=== PATIENT | male | born 1945 | race Hispanic/Latino ===

== ENCOUNTER 2017-08-15 17:07 | Observation (INO) | payer OTHER, MEDICARE, SELFPAY ==
[2017-08-15 17:07] VITALS: BP 149/88; PULSE 74; RESP 20; TEMP 36.9; O2SAT 99
--- NOTE | 2017-08-15 17:57 | CT_ITS ---
STUDY: CT ABDOMEN AND PELVIS WITH CONTRAST REASON FOR EXAM: Male, 71 years old. Right abdominal pain, hernia RADIATION DOSAGE (If Supplied By Facility): CTDIvol = ( 10.79 ) mGy, DLP = ( 215.70 ) mGycm TECHNIQUE: Transaxial images were obtained from the dome of the diaphragm to the symphysis pubis without oral contrast. 100 ml of Isovue 300 contrast was administered. Sagittal and coronal images were reconstructed. Individualized dose optimization techniques were used for this CT. COMPARISON: None. FINDINGS: The visualized lung bases are unremarkable. The heart size is within normal limits. There is no pericardial effusion. Coronary arterial calcifications are present. Normal liver. Normal gallbladder and extrahepatic biliary system. There is a benign calcified granuloma of the spleen. Normal pancreas. Normal bilateral adrenal glands. Normal right kidney. Normal left kidney. Normal visualized stomach. There is mild dilatation of multiple loops of small bowel. Normal colon. The appendix is not identified. There is aneurysmal dilatation of a 5.9 cm in length segment of lower abdominal aorta extending to the iliac bifurcation. Maximal aneurysmal diameter is 5.7 x 5.2 cm. Mural thrombus is noted anteriorly. There is no evidence of aneurysmal leakage. Normal inferior vena cava. Normal retroperitoneum. Normal urinary bladder. The prostate is mildly enlarged. There is a small amount free fluid in the deep right pelvis. There is an indirect right inguinal hernia containing a knuckle of small bowel. Normal osseous structures. CT/Abdomen/Pelvis W IV Cont ONLY IMPRESSION: 1. Indirect right inguinal hernia containing a knuckle of nondistended small bowel suggestive of incarceration. 2. There is mild dilatation of multiple loops of small bowel in the abdomen and pelvis suggestive of obstruction. 3. There is a small amount of free fluid in the deep right pelvis. 4. There is aneurysmal dilatation of a 5.9 cm in length segment of lower abdominal aorta extending to the iliac bifurcation. Maximal aneurysmal diameter is 5.7 x 5.2 cm. Mural thrombus is noted anteriorly. There is no evidence of aneurysmal leakage. Electronically Signed: David Mathews MD at 19:17 EDT , Service support ,
--- NOTE | 2017-08-15 18:00 | ED.DCSUM_ITS ---
- ER Visit Summary Date of Service: 08/15/17 Chief Complaint: Right groin pain History of Present Illness: The patient is a 71 M sent by PCP for concerns of incarcerated inguinal hernia. Patient started having pain in the groin 9 PM yesterday. Denied any heavy lifting the day before or prior symptoms occurring. States pain kept him throughout the night. No nausea or vomiting. Normal bowel movement this morning. Pain worse with palpation or movement. No fever, chills, sweats. Pain currently 5 out of 10. Patient is on Eliquis for which she states had a PE last year status post right total knee arthroplasty. This was diagnosed and managed at [facility]. Physical Examination: General: Alert and oriented ?3, no acute distress HEENT: Normocephalic, atraumatic. Moist mucosa membranes Neck: supple, nontender. Cardiovascular: Regular rate and rhythm, no murmurs Respiratory: Normal breath sounds, symmetric, no distress Abdomen: Soft, nontender, nondistended : No testicular tenderness. There is a right inguinal hernia palpated, there is no swelling, tender to palpation. Extremities: Nontender, no edema, pulses intact ?4 Neuro: no focal neurological deficits. Test Results: WBC 5.9. Hemoglobin 13.1. Creatinine 0.94. Lactate 0.8. CT scan abdomen pelvis notes incarcerated right inguinal hernia with concerns for bowel obstruction. 5.9 cm abdominal aortic aneurysm. Platelets 68. EKG: Sinus rate of 70, no ST or T-wave changes. Chest x-ray: No acute process Emergency Department Course and Treatment: Patient noted hernia on examination. However symptoms are near 20 hours on arrival. He is nontoxic, nonsurgical abdomen. Workup initiated. Labs were normal white count and lactic acid. CT IV contrast notes incarcerated inguinal hernia with concerns for small bowel obstruction. Labs no thrombocytopenia. He is also on Eliquis for history of PE. Coags are stable. With findings on CT discussed with requested surgeon by PCP, Dr. Yates who evaluated patient in the ED. Patient was admitted for planned surgery in the morning. Patient did not have a 5.9 cm abdominal aortic aneurysm. He does not have any mid abdominal pain. There was no bleeding per discussion with radiology. Patient has known thrombocytopenia, no current bleeding. He states he has a hematology referral as an outpatient as pending. Treatment Plan: [] Disposition: Admission Impression: 1. Incarcerated right inguinal hernia 2. Small bowel obstruction 3. Thrombocytopenia 4. Abdominal aortic aneurysm 5.9 cm This note was generated with [employer] dictation software. It may contain incorrect words, spelling, and punctuation that were not noted in review of the chart prior to signing ED Disposition - Plan for ED Patient: Disposition: Acute Care [facility] Chief Complaint: Abd Pain Diagnosis: Incarcerated right inguinal hernia, Thrombocytopenia, Small bowel obstruction, Abdominal aortic aneurysm (AAA) greater than 5.5 cm in diameter in male Referrals: Kelechi Burroughs, FILTER ASSEMBLER-C [Primary Care Provider] -
[2017-08-15] MEDS: Morphine 4 MG/ML Syringe IV (18:11)
[2017-08-15] MEDS: 0.9% Normal Saline 1,000 ML 125 ML IV ×2 (18:11→20:52)
[2017-08-15 18:28] LABS: Absolute Neutrophil Count 3.4 X10^3/uL (2.0-7.7); Basophil# 0.02 X10^3/uL; Basophil% 0.3 % (0-1); Eosinophil# 0.06 X10^3/uL; Hematocrit 40.3 % (40-54); Hemoglobin 13.1 g/dl (13.0-16.5); Lymphocyte % 15.4 % (19-41); Mean Corp Hgb Conc 32.5 g/gl (32-36); Mean Corpuscular Hgb 31.1 pg (27.0-32.0); Mean Corpuscular Volume 95.7 fL (80-94); Mean Platelet Vol. 11.8 fl (6.2-12.0); Monocyte# 1.42 X10^3/uL; Monocyte% 24.3 % (0-10); Neutrophil # 3.44 X10^3/uL (2.7-7.7); Neutrophil % 58.8 % (47-70); Platelet Count 68 K/mm3 (150-450); RBC Distribution Width CV 14.8 % (11.6-14.6); RBC Distribution Width SD 52.4 fl (35.1-43.9); Red Blood Count 4.21 M/mm3 (4.6-6.2); White Blood Count 5.9 K/mm3 (4.4-11.0)
[2017-08-15 18:29] LABS: POSITIVE COUNT NO; POSITIVE DIFFERENTIAL NO; POSITIVE MORPHOLOGY NO
[2017-08-15 18:36] LABS: International Normalized Ratio 0.9; Partial Thromboplast Time 25.5 Seconds (24.1-36.2); Prothrombin Time (Protime)PT. 12.6 SECONDS (11.7-14.9)
[2017-08-15 18:40] LABS: Anion Gap 3 (5-15); BUN 12 mg/dL (7-18); BUN/Creat Ratio 12.7 RATIO (10-20); Calcium,Total 8.8 mg/dL (8.5-10.1); Chloride 106 mmol/L (98-107); Creatinine, Serum 0.94 mg/dL (0.70-1.30); EST Glomerular Filtration Rate 84 mL/min (>60); Est Glom Filt Rate - Afr Amer 101 mL/min (>60); Estimated Creatinine Clearance 49.85 ml/min; Glucose 84 mg/dL (74-106); Potassium 4.2 mmol/L (3.5-5.1); Sodium Level 139 mmol/L (136-145)
[2017-08-15 19:29] VITALS: BP 141/80; PULSE 66; RESP 16; TEMP 36.8; O2SAT 97
[2017-08-15 19:59] LABS: Lactic Acid 0.8 mmol/L (0.4-2.0)
--- NOTE | 2017-08-15 20:24 | EKG12_ITS ---
Test Reason : DYSRHYTHMIA Blood Pressure : / mmHG Vent. Rate : 064 BPM Atrial Rate : 064 BPM P-R Int : 168 ms QRS Dur : 080 ms QT Int : 406 ms P-R-T Axes : 069 075 068 degrees QTc Int : 418 ms Normal sinus rhythm Normal ECG Confirmed by DEBORAH JURADO ([id number]), senior technical editor RAMON BROWNE ([id number] on 08/19/2017 10:20:34 AM Referred By: SAUL Confirmed By:DEBORAH JURADO
--- NOTE | 2017-08-15 20:25 | ED.RN ---
CALLED FOR EKG PER REQUEST OF DR MORRIS, PULLED OLD EKG'S FOR
--- NOTE | 2017-08-15 20:48 | RAD_ITS ---
STUDY: X-RAY CHEST REASON FOR EXAM: Male, 71 years old. Preop TECHNIQUE: Single AP portable view of the chest. COMPARISON: None. FINDINGS: The lungs are clear and expanded. There is no demonstrated pleural abnormality. Normal size heart. Normal mediastinum and murali. Normal visualized pulmonary arteries. Normal visualized aortic arch and descending thoracic aorta. Normal visualized thoracic spine. Normal visualized ribs, clavicles, and shoulders. There is no demonstrated abnormality of the visualized soft tissue structures of the upper abdomen. RAD/Chest 1 View (Portable) IMPRESSION: Chest findings within normal limits. No acute cardiopulmonary disease process is seen. Electronically Signed: David Mathews MD at 21:18 EDT , Service support ,
[2017-08-15 20:55] VITALS: BP 158/89; PULSE 64; RESP 16; TEMP 36.8; O2SAT 97
[2017-08-15 20:58] VITALS: BP 158/89; PULSE 67; RESP 16; O2SAT 97
--- NOTE | 2017-08-15 20:58 | PCM.HP.STD ---
Problem List (1) Incarcerated right inguinal hernia Status: Acute (2) Pulmonary embolism Status: Chronic Qualifiers: Pulmonary embolism type: other Chronicity: chronic Acute cor pulmonale presence: without acute cor pulmonale Qualified Code(s): I27.82 - Chronic pulmonary embolism (3) Thrombocytopenia Status: Chronic (4) Hypertension Status: Chronic Qualifiers: Hypertension type: unspecified Qualified Code(s): I10 - Essential (primary) hypertension (5) AAA (abdominal aortic aneurysm) without rupture Status: Acute History of Present Illness Date of Admission: 08/15/17 The patient is a 71 year old M who developed right groin pain 9 PM last night. He has known that he has had a right inguinal hernia. He is always been able to reduce it. He was not able to reduce it so he presented to his primary care physician GUERA Villalobos. The patient was referred to the [facility] emergency room where he states he presented around 4:00. I was first notified at 9 PM . The patient states that the right groin pain has improved since earlier today. He denies fever or chills or sweats. The patient states that he had a right total knee replacement June 2016. He states that he had a pulmonary embolus December 2016. He states that he did not have any deep venous thrombosis in his legs. It is of note that his history and physical June 2016 suggested that he had actually previously been on Eliquis therapy in the past as well. The patient apparently could not recall the reason. During the patient's immediate postoperative recovery from his right total knee apparently he was not managed on Eliquis A CT scan of the abdomen and pelvis was obtained through the [place] [facility]. There is felt to be mild dilatation of multiple loops of small bowel. There is aneurysmal dilatation of the abdominal aorta to 5.9 cm extending to the iliac bifurcation. No evidence for leak. There is felt to be an indirect right inguinal hernia containing a knuckle of small bowel. The patient tells me that he currently has just some minimal residual discomfort in the right groin. He notes that upon my arrival I was easily able to reduce area. I had him check the area as well and he is able to easily reduce the hernia. He does note some mild persistent tenderness. He denies any abdominal pain. He additionally cautions me that in the right lower quadrant he had a morphine pain pump with tubing that goes around to his back. He states it was because of a chronic right shoulder injury. His white blood cell count is only 5.9. Hemoglobin 13.1. Hematocrit 40.3. Platelet count 68,000. 58% neutrophils. Coags are normal. BUN is 12 and creatinine 0.94. Lactic acid level 0.8 Past Medical History Past Medical History (Chronic Problems): Chronic Problems Pulmonary embolism (Chronic) Thrombocytopenia (Chronic) Hypertension (Chronic) Allergies aspirin Allergy (Verified 08/15/17 17:10) Rash Home Medications: Ambulatory Orders Medication Instructions Recorded Apixaban [Eliquis] 2.5 mg PO BID #16 tablet 07/02/16 Ergocalciferol [Vitamin D] 50,000 unit PO Q7D #7 capsule 07/02/16 Famotidine [Pepcid] 20 mg PO DAILY #30 tablet 07/02/16 Ferrous Sulfate 325 mg PO DAILY@0800 #30 tablet 07/02/16 Gabapentin [Neurontin] 300 mg PO TIDCM #90 capsule 07/02/16 Pramipexole Di-HCl [Mirapex] 1 mg PO QHS #30 tablet 07/02/16 traZODone [Desyrel] 50 mg PO QHS #30 tablet 07/02/16 Surgical History: - - Right total replacement. History of right lower quadrant morphine pain pump insertion Smoking Status: Former smoker Tobacco Use: Cigarettes Alcohol: None - *Family History Maternal History Items: No pertinent history Review of Systems Constitutional: Reports: - - Upon questioning the patient he states that over the past several months he has possibly lost 10 pounds in weight. He is not sure the reason. He states that only 3 weeks ago did he stop smoking cigarettes. He has been a lifelong cigarette smoker Eyes: Denies: Blurred vision HEENT: Denies: Difficulty Hearing Cardiovascular: Denies: Chest Pain Respiratory: Denies: Cough Gastrointestinal: Denies: Abdominal Pain, Constipation, Diarrhea, Hematemesis, Hematochezia, Nausea, Melena, Vomiting Genitourinary: Denies: Dysuria Musculoskeletal: Denies: Leg Pain Skin: Denies: Dryness Psychiatric: Denies: Anxiety Endocrine: Reports: Change in Body Habitus Hematologic/ Lymphatic: Reports: - - Reports history of thrombocytopenia VTE Information - Inpt Only VTE Present on Admission: No VTE Mechan Device Prophylaxis: SCD's VTE Pharm Prophylaxis ordered?: No Patient Problems: Active and Suspected Problems Incarcerated right inguinal hernia (Acute) AAA (abdominal aortic aneurysm) without rupture (Acute) - Physical Exam General: Alert, Oriented x3, Cooperative, No apparent distress, - - Patient appears cachectic very diminutive in size HEENT: Atraumatic Oral: Moist Mucosa Neck: Supple, No JVD, Negative Carotid Bruits Lungs: Clear to auscultation, - - Increased anterior posterior diameter. Slightly diminished in the bases. Cardiovascular: Regular rate, Regular Rhythm Abdomen: Soft, Non Tender, Hypoactive Bowel Sounds, Distended, - - Testicles are descended. Left groin solid intact. Right inguinal hernia detectable but easily reducible. Soft. Mildly tender to very deep palpation. No fixed mass. Extremities: No edema Skin: No rashes Musculoskeletal: No Tenderness to Palpation of Joints or Extremities Lymphatic: No Cervical, Supraclavicular, or Inguinal Adenopathy Neurological: Cranial nerves II-XII grossly intact Psych/Mental Status: Normal Affect Vital Signs Temp Pulse Resp BP Pulse Ox 98.2 F 64 16 158/89 H 97 08/15/17 20:55 08/15/17 20:55 08/15/17 20:55 08/15/17 20:55 08/15/17 20:55 Oxygen Delivery Method Room Air Weight: 106 lb 4.205 oz Body Mass Index (BMI) 20.0 Laboratory Tests Past 24 Hrs 08/15/17 08/15/17 08/15/17 18:05 18:05 18:05 WBC 5.9 RBC 4.21 L Hgb 13.1 Hct 40.3 MCV 95.7 H MCH 31.1 MCHC 32.5 RDW 14.8 H RDW Differential 52.4 H Plt Count 68 L MPV 11.8 Immature Gran % (Auto) 0.200 Neut % (Auto) 58.8 Lymph % (Auto) 15.4 L [place] % (Auto) 24.3 H Eos % (Auto) 1.0 Baso % (Auto) 0.3 Absolute Neuts (auto) 3.4 Absolute Lymphs (auto) 0.90 Total Counted Not Reportable PT 12.6 INR 0.9 APTT 25.5 Sodium 139 Potassium 4.2 Chloride 106 Carbon Dioxide 30.0 Anion Gap 3 L BUN 12 Creatinine 0.94 Estim Creat Clear Calc 49.85 Est GFR (MDRD) Af Amer 101 Est GFR (MDRD) Non-Af 84 BUN/Creatinine Ratio 12.7 Glucose 84 Lactic Acid Calcium 8.8 Blood Type Antibody Screen 08/15/17 08/15/17 19:25 19:50 WBC RBC Hgb Hct MCV MCH MCHC RDW RDW Differential Plt Count MPV Immature Gran % (Auto) Neut % (Auto) Lymph % (Auto) [place] % (Auto) Eos % (Auto) Baso % (Auto) Absolute Neuts (auto) Absolute Lymphs (auto) Total Counted PT INR APTT Sodium Potassium Chloride Carbon Dioxide Anion Gap BUN Creatinine Estim Creat Clear Calc Est GFR (MDRD) Af Amer Est GFR (MDRD) Non-Af BUN/Creatinine Ratio Glucose Lactic Acid 0.8 Calcium Blood Type O POSITIVE Antibody Screen NEGATIVE Assessment/Plan All Active Problems Incarcerated right inguinal hernia (Acute) AAA (abdominal aortic aneurysm) without rupture (Acute) Status post revision of total replacement of right knee (Acute) Debility (Acute) The patient last took his Eliquis last night. The hernia is reducible. He does not appear to have an acute abdomen. The CT findings suggest previous incarceration which now is been reduced upon my arrival. He does not have a leukocytosis nor an elevated lactic acid level. He does have thrombocytopenia which by his report did not lead to previous surgical difficulties. He has a infrarenal abdominal aortic aneurysm. This does not appear to be tender nor does it appear to be part of this acute presentation. He has a pain pump located in the right lower quadrant. He is extraordinarily slender. Because of the acuteness of his presentation and severity of his pain and slight dilatation of bowel on CT I recommend that the patient be hospitalized. We will allow him out of bed for bathroom privileges otherwise we will attempt to keep the hernia reduced. I will use sequential venous compression devices and hold his anticoagulation to allow for surgery tomorrow. I am recommending a right inguinal herniorrhaphy done under monitored anesthesia care and local anesthetic with mesh. He is aware of the technique, benefits, risks, alternatives. No guarantees of success have been offered. We will need to avoid the pain pump that he has located in the right lower quadrant. He will need to have future further assessment of his infrarenal abdominal aortic aneurysm as well. He is otherwise unexpected weight loss is of undetermined etiology. His history of pulmonary embolus he states with undetermined etiology. It may also be of value for primary care to pursue consideration at least of a occult workup for neoplasm. The patient has had an opportunity to ask and have questions answered. We will admit and proceed with surgical intervention tomorrow. Cameron Yates M.D., F.A.C.S.
[2017-08-15 22:11] VITALS: BMI 19.8
[2017-08-15 22:35] VITALS: BP 149/82; PULSE 64; RESP 16; TEMP 36.7; O2SAT 99
[2017-08-15] MEDS: Lactated Ringers 1,000 ML 70 ML IV (22:55)
[2017-08-15] MEDS: Acetaminophen 325 MG Tablet 650 MG PO (22:55)
[2017-08-15] MEDS: traZODone 50 MG Tablet PO (22:56)
[2017-08-15] MEDS: Pramipexole Di-HCl 1 MG Tablet PO (22:56)
[2017-08-16] VITALS (11 sets, daily range): BP systolic 109–149; BP diastolic 69–84; PULSE 60–78; RESP 16–18; TEMP 36.2–36.6; O2SAT 94–99; BMI 19.8
[2017-08-16 06:49] LABS: Absolute Lymphocyte Count 0.95 X10^3/ul (0.83-4.51); Absolute Neutrophil Count 2.8 X10^3/uL (2.0-7.7); Basophil# 0.01 X10^3/uL; Basophil% 0.2 % (0-1); Eosinophil# 0.07 X10^3/uL; Eosinophils% 1.3 % (0-5); Hematocrit 37.2 % (40-54); Hemoglobin 11.8 g/dl (13.0-16.5); Lymphocyte # 0.95 X10^3/ul (4.0); Lymphocyte % 18.1 % (19-41); Mean Corp Hgb Conc 31.7 g/gl (32-36); Mean Corpuscular Hgb 30.5 pg (27.0-32.0); Mean Corpuscular Volume 96.1 fL (80-94); Mean Platelet Vol. 12.6 fl (6.2-12.0); Monocyte# 1.46 X10^3/uL; Monocyte% 27.9 % (0-10); Neutrophil # 2.75 X10^3/uL (2.7-7.7); Neutrophil % 52.5 % (47-70); Platelet Count 68 K/mm3 (150-450); RBC Distribution Width CV 14.8 % (11.6-14.6); Red Blood Count 3.87 M/mm3 (4.6-6.2); White Blood Count 5.2 K/mm3 (4.4-11.0)
[2017-08-16 06:55] LABS: POSITIVE COUNT NO; POSITIVE DIFFERENTIAL NO; POSITIVE MORPHOLOGY NO
--- NOTE | 2017-08-16 08:28 | NURSING ---
report called to ac- talked with rolly hernandez
--- NOTE | 2017-08-16 09:32 | NURSING ---
[pt off unit at this time for surgery
[2017-08-16] MEDS: Cefazolin 2 GM in 0.9% Normal Saline 100 ML IV (10:10)
--- NOTE | 2017-08-16 10:16 | PCM.DC.GS ---
Discharge Diet: Light diet - advance as tolerated - if you have questions about your diet instructions, please talk to you doctor. Discharge Activity: May Not Drive - for 1 week or while taking narcotic pain medicine. May shower in (days): 1 Lifting Restrictions: 10 pounds Call your doctor if your incision/area has: Continuous Slow Oozing, Sudden Increased Bleeding, Increased Pain/ Swelling, Increased Redness, Foul Smelling Discharge Call your doctor if you observe: Fever of 101 or Higher Suture Line Care: Avoid Pulling/Pushing, Avoid Pinching/Bending Additional Dressing/Incision Instructions:: Change or remove dressing in 4 days. Leave steri-strips in place for 1 week. Additional Instructions: You may resume your Eliquis on the morning of August 17, 2017 You may resume your other medications today August 16, 2017 Allergies/Adverse Reactions: Allergies aspirin Allergy (Verified 08/15/17 17:10) Rash Medications to take at Discharge Apixaban [Eliquis] 2.5 mg PO BID #16 tablet 07/02/16 Ergocalciferol [Vitamin D] 50,000 unit PO Q7D #7 capsule 07/02/16 Ferrous Sulfate 325 mg PO DAILY@0800 #30 tablet 07/02/16 Pramipexole Di-HCl [Mirapex] 1 mg PO QHS #30 tablet 07/02/16 traZODone [Desyrel] 50 mg PO QHS #30 tablet 07/02/16 Gabapentin [Neurontin] 300 mg PO DAILY 08/16/17 Gabapentin [Neurontin] 600 mg PO QHS 08/16/17 Hydrocodone Bitart/Apap 5-325 [[place] 5MG-325MG] 1 tablet PO Q6H PRN PRN 3 Days #8 tablet 08/16/17 Psyllium Husk (with Sugar) [Metamucil Packet] 3.4 gm PO DAILY #7 packet 08/16/17 The following prescriptions were given: Hydrocodone Bitart/Apap 5-325 [[place] 5MG-325MG] 1 tablet PO Q6H PRN PRN 3 Days #8 tablet PRN Reason: Pain Psyllium Husk (with Sugar) [Metamucil Packet] 3.4 gm PO DAILY #7 packet Primary Care Physician: Kelechi Burroughs, PACO-C [Primary Care Provider] - Please Follow Up With: Cameron Yates MD - [phone] When: Call to make an appointment to be seen in about 10 days.
[2017-08-16] MEDS: Bupivacaine Mpf 0.5% 30 ML VIAL (10:25)
--- NOTE | 2017-08-16 11:10 | OP.PCM_ITS ---
Problem List (1) Incarcerated right inguinal hernia Status: Acute (2) Pulmonary embolism Status: Chronic Qualifiers: Pulmonary embolism type: other Chronicity: chronic Acute cor pulmonale presence: without acute cor pulmonale Qualified Code(s): I27.82 - Chronic pulmonary embolism (3) Thrombocytopenia Status: Chronic (4) Hypertension Status: Chronic Qualifiers: Hypertension type: unspecified Qualified Code(s): I10 - Essential (primary ) hypertension (5) AAA (abdominal aortic aneurysm) without rupture Status: Acute Report of Operation Date of Procedure: 08/16/17 Pre-Operative Diagnosis: Incarcerated right inguinal hernia Post-Operative Diagnosis: Incarcerated indirect right inguinal hernia Surgery/Procedure Performed:: Sandor right inguinal herniorrhaphy Description of Surgical Findings:: Timeout and informed consent was obtained. 71-year-old gentleman was taken to the operating room. He presented with acute pain tenderness and mass in the right groin. CT scan had suggested a knuckle of bowel incarceration. He underwent monitored anesthesia care. Ancef 2 g were given intravenous preoperatively. The right groin was sterilely prepped and draped. 1% lidocaine mixed 50-50 with 0.5% Marcaine was used as local anesthetic 15 cc was used. A transverse incision was made in the right groin. Sharp dissection carried down through the subcutaneous tissue. The patient was incredibly thin. The skin Was identified and the external oblique in size. The hernia Bulging out and had to be circumferentially dissected free. The internal contents appear to be unremarkable I did not attempt to open the sac. The degree of tension on the sciatic. I felt that he would have great difficulty in reducing the contents. Having completely free the hernia then approximated the transversalis fascia with a running 3-0 Ethibond. Then I used a piece of keyhole Marlex mesh. I completely dissected free overlying the pubic tubercle and beneath the external oblique laterally. The mesh deformed. Placed mesh that was tonight defect the defect area. It absolutely formed fit underneath the external oblique and around the internal ring. It was secured to itself lateral to the internal ring with a 3-0 Ethibond and it was nicely placed into position. It was secured to the pubic tubercle with 3-0 Ethibond. The external oblique was then approximated with several interrupted 3-0 Vicryl sutures. Good positioning and reduction of the hernia was achieved. Subdermal tissues approximated with several interrupted 3-0 Vicryl. The skin edges approximated with running subcu 4-0 Monocryl. Steri-Strip Telfa and OpSite dressings applied. Sponge and instrument and needle counts were reported to the surgeon to be correct. Specimens none. Drains none. Blood loss minimal. He was taken to the recovery area in satisfactory condition without apparent complication. Cameron Yates M.D., F.A.C.S. Type of Anesthesia:: Local MAC
--- NOTE | 2017-08-16 12:04 | NURSING ---
Received call from PACU- notified that they received orders from Dr. Yates to d/c patient. Notified that patient would be in room 19 and ask if patient should be returned to unit or if they should keep patient and transport belongings. In order to prevent transporting patient unnecessarily- staff on [facility] will deliver belongings to 19 in PACU.
== END 2017-08-16 15:35 | disposition home or self-care (01) ==
LOC: ED 21:34 → MS3 21:39
PROVIDERS: Admitting Provider Surgery; Emergency Provider Emergency Medicine; Family Provider Nurse Practitioner Family; PCP Nurse Practitioner Family; Visit Provider Surgery
PROC: (CPT 49507; principal; 2017-08-16 07:15)
DX: K40.30 Unilateral inguinal hernia, with obstruction, without gangrene, not specified as recurrent (principal); D69.6 Thrombocytopenia, unspecified; I10 Essential (primary) hypertension; Z86.711 Personal history of pulmonary embolism; Z79.899 Other long term (current) drug therapy; Z87.891 Personal history of nicotine dependence; G25.81 Restless legs syndrome; I71.4 Abdominal aortic aneurysm, without rupture
CPT/HCPCS: 00830; 49507; 36415; 71045; 74177; 80048; 83605; 85025; 85610; 85730; 86850; 86900; 93005; 96361; 96374; 99218; 99282; J7030; J7120; Q9967; A4216; C1781; G0378

== ENCOUNTER → 2018-12-25 15:22 | Outpatient (CLI) | payer OTHER, MEDICARE, SELFPAY ==
[2018-12-25 16:02] LABS: Absolute Lymphocyte Count 1.19 X10^3/uL (0.83-4.51); Absolute Neutrophil Count 2.1 X10^3/uL (2.0-7.7); Basophil# 0.03 X10^3/uL; Basophil% 0.7 % (0-1); Eosinophil# 0.09 X10^3/uL; Hematocrit 41.5 % (40-54); Hemoglobin 13.1 g/dL (13.0-16.5); Lymphocyte # 1.19 X10^3/ul (4.0); Lymphocyte % 26.6 % (19-41); Mean Corp Hgb Conc 31.6 g/dL (32-36); Mean Corpuscular Hgb 30.5 pg (27.0-32.0); Mean Corpuscular Volume 96.5 fL (80-94); Monocyte# 1.06 X10^3/uL; Monocyte% 23.7 % (0-10); NRBC Flagged by Analyzer 0 % (0-5); Neutrophil # 2.09 X10^3/uL (2.7-7.7); Neutrophil % 46.6 % (47-70); POSITIVE MORPHOLOGY YES; Platelet Count 75 K/mm3 (150-450); RBC Distribution Width CV 14.7 % (11.6-14.6); RBC Distribution Width SD 52.5 fl (35.1-43.9); White Blood Count 4.5 K/mm3 (4.4-11.0)
[2018-12-25 16:11] LABS: Differential Indicated SCAN CRITERIA MET; Erythrocyte Sedimentation Rate 26 mm/hr (0-20)
[2018-12-25 16:35] LABS: CRP < 2.90 mg/L (0.0-3.0)
[2018-12-25 16:50] LABS: Anisocytosis RARE; Macrocytosis RARE; Platelet Estimate MOD DEC (ADEQ); Platelet Morphology LARGE; Red Cell Morphology N CHROM NORMAL (NORM C&C)
[2018-12-26 11:54] LABS: Pathologist Review Reviewed
== END ==
PROVIDERS: Family Provider Nurse Practitioner Family; PCP Nurse Practitioner Family; Referring Provider Specialist; Visit Provider Specialist
DX: Z96.651 Presence of right artificial knee joint (principal)
CPT/HCPCS: 36415; 85025; 85652; 86140

== ENCOUNTER → 2019-12-03 12:34 | Outpatient (CLI) | payer MEDICARE, SELFPAY ==
[2019-12-03 14:16] LABS: Absolute Lymphocyte Count 1.12 X10^3/uL (0.83-4.51); Absolute Neutrophil Count 3.8 X10^3/uL (2.0-7.7); Basophil# 0.01 X10^3/uL; Basophil% 0.2 % (0-1); Eosinophil# 0.09 X10^3/uL; Eosinophils% 1.4 % (0-5); Hematocrit 39.7 % (40-54); Hemoglobin 12.3 g/dL (13.0-16.5); Lymphocyte # 1.12 X10^3/ul (4.0); Lymphocyte % 16.9 % (19-41); Mean Corpuscular Hgb 30.1 pg (27.0-32.0); Mean Corpuscular Volume 97.3 fL (80-94); Monocyte# 1.61 X10^3/uL; Monocyte% 24.2 % (0-10); NRBC Flagged by Analyzer 0 % (0-5); Neutrophil # 3.78 X10^3/uL (2.7-7.7); Neutrophil % 56.8 % (47-70); POSITIVE COUNT YES; POSITIVE DIFFERENTIAL YES; Platelet Count 86 K/mm3 (150-450); RBC Distribution Width CV 14.3 % (11.6-14.6); RBC Distribution Width SD 51.3 fl (35.1-43.9); Red Blood Count 4.08 M/mm3 (4.6-6.2); White Blood Count 6.6 K/mm3 (4.4-11.0)
[2019-12-03 14:28] LABS: Differential Indicated SCAN CRITERIA MET
[2019-12-03 14:32] LABS: Albumin, Serum 3.8 g/dL (3.2-5.0); Anion Gap 4 (5-15); BUN 12 mg/dL (7-18); BUN/Creat Ratio 13.4 RATIO (10-20); Chloride 104 mmol/L (98-107); EST Glomerular Filtration Rate 89 mL/min (>60); Est Glom Filt Rate - Afr Amer 107 mL/min (>60); Glucose 89 mg/dL (74-106); Potassium 3.9 mmol/L (3.5-5.1); Sodium Level 137 mmol/L (136-145)
[2019-12-03 14:46] LABS: Differential Comment SCANNED; Platelet Estimate ADEQUATE (ADEQ)
[2019-12-03 14:47] LABS: Platelet Morphology LARGE
== END ==
PROVIDERS: PCP Nurse Practitioner Family; Referring Provider Specialist; Visit Provider Specialist
DX: Z01.812 Encounter for preprocedural laboratory examination (principal); Z96.651 Presence of right artificial knee joint
CPT/HCPCS: 36415; 80048; 82040; 85025

== ENCOUNTER → 2020-03-31 10:40 | Outpatient (CLI) | payer MEDICARE, SELFPAY ==
[2020-03-31 11:15] LABS: Absolute Lymphocyte Count 1.04 X10^3/uL (0.83-4.51); Absolute Neutrophil Count 2.7 X10^3/uL (2.0-7.7); Basophil# 0.01 X10^3/uL; Basophil% 0.2 % (0-1); Eosinophil# 0.11 X10^3/uL; Eosinophils% 2.1 % (0-5); Hematocrit 37.6 % (40-54); Lymphocyte # 1.04 X10^3/ul (4.0); Lymphocyte % 19.6 % (19-41); Mean Corp Hgb Conc 31.9 g/dL (32-36); Mean Corpuscular Hgb 30.9 pg (27.0-32.0); Mean Corpuscular Volume 96.9 fL (80-94); Mean Platelet Vol. 13.6 fl (6.2-12.0); Monocyte# 1.41 X10^3/uL; Monocyte% 26.6 % (0-10); NRBC Flagged by Analyzer 0 % (0-5); Neutrophil # 2.72 X10^3/uL (2.7-7.7); Neutrophil % 51.3 % (47-70); POSITIVE COUNT YES; POSITIVE MORPHOLOGY YES; Platelet Count 81 K/mm3 (150-450); RBC Distribution Width CV 14.6 % (11.6-14.6); Red Blood Count 3.88 M/mm3 (4.6-6.2); White Blood Count 5.3 K/mm3 (4.4-11.0)
[2020-03-31 11:16] LABS: Differential Indicated SCAN CRITERIA MET
[2020-03-31 11:41] LABS: Hypochromasia 1+; Platelet Estimate MOD DEC (ADEQ); Platelet Morphology LARGE
[2020-03-31 11:45] LABS: Anion Gap 1 (5-15); BUN 12 mg/dL (7-18); BUN/Creat Ratio 12.9 RATIO (10-20); Calcium,Total 8.9 mg/dL (8.5-10.1); Chloride 111 mmol/L (98-107); Creatinine, Serum 0.93 mg/dL (0.70-1.30); EST Glomerular Filtration Rate 85 mL/min (>60); Est Glom Filt Rate - Afr Amer 102 mL/min (>60); Glucose 98 mg/dL (74-106); Sodium Level 142 mmol/L (136-145)
== END ==
PROVIDERS: PCP Nurse Practitioner Family; Referring Provider Specialist; Visit Provider Specialist
DX: Z01.818 Encounter for other preprocedural examination (principal); Z01.812 Encounter for preprocedural laboratory examination
CPT/HCPCS: 36415; 80048; 82040; 85025

== ENCOUNTER → 2021-10-19 | Outpatient (CLI) | payer MEDICARE, SELFPAY ==
[2021-10-19 13:07] LABS: Erythrocyte Sedimentation Rate 41 mm/hr (0-20)
[2021-10-19 13:11] LABS: Absolute Lymphocyte Count 1.16 X10^3/uL (0.83-4.51); Absolute Neutrophil Count 4.3 X10^3/uL (2.0-7.7); Basophil# 0.03 X10^3/uL; Basophil% 0.4 % (0-1); Eosinophil# 0.15 X10^3/uL; Hemoglobin 11.3 g/dL (13.0-16.5); Lymphocyte # 1.16 X10^3/ul (0.83-4.51); Lymphocyte % 15.4 % (19-41); Mean Corp Hgb Conc 31.4 g/dL (32-36); Mean Corpuscular Hgb 29.9 pg (27.0-32.0); Mean Corpuscular Volume 95.2 fL (80-94); Mean Platelet Vol. 13.1 fl (6.2-12.0); Monocyte# 1.81 X10^3/uL; Monocyte% 24.1 % (0-10); NRBC Flagged by Analyzer 0 % (0-5); Neutrophil # 4.34 X10^3/uL (2.7-7.7); Neutrophil % 57.8 % (47-70); POSITIVE DIFFERENTIAL YES; POSITIVE MORPHOLOGY YES; Platelet Count 104 K/mm3 (150-450); RBC Distribution Width SD 49.1 fl (35.1-43.9); Red Blood Count 3.78 M/mm3 (4.6-6.2); White Blood Count 7.5 K/mm3 (4.4-11.0)
[2021-10-19 13:48] LABS: Differential Indicated SCAN CRITERIA MET
[2021-10-19 14:02] LABS: Differential Comment SCANNED
== END | disposition home or self-care (01) ==
LOC: LAB 11:24
PROVIDERS: PCP Nurse Practitioner Family; Referring Provider Specialist; Visit Provider Specialist
DX: Z96.651 Presence of right artificial knee joint (principal)
CPT/HCPCS: 36415; 85025; 85652; 86140

== ENCOUNTER → 2021-10-26 | Outpatient (CLI) | payer MEDICARE, SELFPAY ==
[2021-10-26 11:25] LABS: Synovial Fld Mononuclear WBC # 0.302 10^3/ul; Synovial Fld Mononuclear WBC % 70.5 %; Synovial Fld Polynuclear WBC # 0.126 10^3/uL; Synovial Fld Polynuclear WBC % 29.5 %
[2021-10-26 11:26] LABS: RBC /Synovial Fluid 0.016 10^6/uL (0)
[2021-10-26 11:51] LABS: Lymph 50 %; Monocyte /Synovial Fluid 37 %; Neutrophil 10 % (0-25); Other Cell /Synovial Fluid 3 %
[2021-10-26 11:52] LABS: AUTO B FLUID DILUENT BKGD CT WBC <0.1 RBC <0.01 (W<.1,R<.01); Appearance /Synovial Fluid Sl Cl (CLEAR); Body Fluid QC Type(s) BF1Q; Color / Synovial Fluid Pink (Pale Yellow); Source / Synovial Fluid RT KNEE; Viscosity / Synovial Fluid Sl. Viscous (HIGH)
[2021-10-27 15:03] LABS: Pathologist Comment Reviewed
== END | disposition home or self-care (01) ==
LOC: LAB 10:01
PROVIDERS: PCP Nurse Practitioner Family; Referring Provider Specialist; Visit Provider Specialist
DX: M25.561 Pain in right knee (principal); Z96.651 Presence of right artificial knee joint
CPT/HCPCS: 87015; 87070; 87075; 87101; 87116; 87205; 87206; 89050; 89051

== ENCOUNTER → 2022-10-18 | Outpatient (CLI) | payer MEDICARE, SELFPAY ==
[2022-10-18 12:57] LABS: Syphilis Antibodies Non-reactive
== END | disposition home or self-care (01) ==
PROVIDERS: PCP Nurse Practitioner Family; Referring Provider Physician Assistant; Visit Provider Physician Assistant
DX: L20.89 Other atopic dermatitis (principal)
CPT/HCPCS: 36415; 86780

== ENCOUNTER → 2022-11-12 | Outpatient (CLI) | payer MEDICARE, SELFPAY ==
--- NOTE | 2022-11-13 08:29 | EKG12_ITS ---
Test Reason : PRE OP Blood Pressure : / mmHG Vent. Rate : 092 BPM Atrial Rate : 092 BPM P-R Int : 168 ms QRS Dur : 082 ms QT Int : 362 ms P-R-T Axes : 081 084 011 degrees QTc Int : 447 ms Normal sinus rhythm ST & T wave abnormality, consider inferior ischemia Abnormal ECG Confirmed by GEMMA DAMON, TODD ([id number]), editor & co founder FABIANA LANIER ([id number]) on 11/13/2022 1:57:59 PM Referred By: LAZ REYNOSO Confirmed By:TODD MENENDEZ MD
[2022-11-13 08:38] LABS: Absolute Lymphocyte Count 1.91 X10^3/uL (0.83-4.51); Absolute Neutrophil Count 7.4 X10^3/uL (2.0-7.7); Basophil# 0.07 X10^3/uL; Basophil% 0.5 % (0-1); Eosinophil# 0.13 X10^3/uL; Hematocrit 39.1 % (40-54); Hemoglobin 12.1 g/dL (13.0-16.5); Lymphocyte # 1.91 X10^3/ul (0.83-4.51); Lymphocyte % 14.4 % (19-41); Mean Corp Hgb Conc 30.9 g/dL (32-36); Mean Corpuscular Hgb 30.6 pg (27.0-32.0); Mean Corpuscular Volume 98.7 fL (80-94); Mean Platelet Vol. 13.9 fl (6.2-12.0); Monocyte# 3.56 X10^3/uL; Monocyte% 26.9 % (0-10); NRBC Flagged by Analyzer 0 % (0-5); Neutrophil # 7.43 X10^3/uL (2.7-7.7); Neutrophil % 56.1 % (47-70); POSITIVE COUNT YES; POSITIVE DIFFERENTIAL YES; POSITIVE MORPHOLOGY YES; Platelet Count 77 K/mm3 (150-450); RBC Distribution Width CV 14.6 % (11.6-14.6); RBC Distribution Width SD 53.5 fl (35.1-43.9); Red Blood Count 3.96 M/mm3 (4.6-6.2); White Blood Count 13.2 K/mm3 (4.4-11.0)
[2022-11-13 08:39] LABS: Differential Indicated SCAN CRITERIA MET
[2022-11-13 08:58] LABS: Platelet Estimate MOD DEC (ADEQ)
[2022-11-13 08:59] LABS: Anion Gap 4 (5-15); BUN 12 mg/dL (7-18); Calcium,Total 8.9 mg/dL (8.5-10.1); Chloride 108 mmol/L (98-107); Creatinine, Serum 1.34 mg/dL (0.70-1.30); EST Glomerular Filtration Rate 55 mL/min (>60); Est Glom Filt Rate - Afr Amer 67 mL/min (>60); Glucose 155 mg/dL (74-106); Potassium 3.8 mmol/L (3.5-5.1); Sodium Level 138 mmol/L (136-145)
[2022-11-13 09:01] LABS: Magnesium 2.3 mg/dL (1.6-2.6)
[2022-11-15 09:49] LABS: Pathologist Review Reviewed
--- NOTE | 2022-11-27 22:05 | PCM.HP.BLA ---
History and Physical History and Physical? Patient Name: Bret Roberts : 1945 From:? YARA ACUNA PA-C? DATE OF PRE-OPERATIVE EXAM: 11/26/2022 DATE OF SURGERY:? 12/05/2022 SCHEDULED PROCEDURE:? Revision right knee with polyethylene exchange HISTORY OF PRESENT ILLNESS: Preoperative history and physical exam was performed on November 26, 2022.? This is a 77-year-old male who is been having ongoing pain with his right knee.? He has significant history with multiple surgeries on the right knee.? He had a previous right knee arthroscopy with medial and lateral meniscectomy by Dr. Leroy Moreau on September 13, 2015.? Patient had continued pain postoperatively and eventually had a right total knee arthroplasty on March 28, [address] Leroy Moreau.? This was followed by manipulation under anesthesia by Dr. Leroy Moreau on May 16, 2016.? Patient again continued to struggle with range of motion and pain and underwent a revision of the patella and polyethylene exchange with scar excision and quadricepsplasty on June 27, 2016.? Patient was then to have surgery in June 2019 but had to be canceled due to thrombocytopenia.? This was rescheduled and again had to be canceled due to thrombocytopenia in March 2020.? Patient was treated by specialist at that time Dr. Moe in which she had improvement of his platelet levels for the thrombocytopenia and iron deficiency.? On June 14, 2020 patient underwent a complete revision right total knee arthroplasty.? Despite previous surgeries patient has continued to complain of pain and limitations in range of motion.? He was scheduled to undergo polyethylene exchange with scar tissue debridement however this was canceled due to the thrombocytopenia.? He is now following Dr. Martins in which he is currently receiving Nplate on November 23, 2022 and will get another treatment on November 30, 2022.? The goal will be to maintain platelet count greater than 150,000 for surgery.? There is plan for repeat CBC on December 03, 2022 for final clearance.? With his previous surgery it was recommended that patient use Eliquis 2.5 mg twice daily for DVT prophylaxis.? Patient currently denies any chest pain, shortness of breath, fevers chills or recent infections.? Patient is continuing to complain of significant pain with the right knee and limited motion.? It affects his activities of daily living.? After failing conservative and surgical intervention, the patient did wish to proceed with a polyethylene exchange right total knee.? Patient has obtain surgical clearance from the primary care physician Jonathon Burroughs.? We are also have surgery plan with his evaporator repairer Dr. Martins in which he is getting treated with Nplate and will have final lab work on December 03, 2022 for clearance.? Patient has medical history pertinent for chronic idiopathic thrombocytopenic purpura, macrocytic anemia, history of ulcers.? He denies past history of DVT or pulmonary embolism. REVIEW OF SYSTEMS: Review Of Systems: Constitutional: Reports weight changeDenies change in appetite, fever,or weight change. Cardiovasular: Denies chest pain, heart murmur and irregular heartbeat. Respiratory: Reports cough and shortness of breath, but denies pneumonia, tuberculosis and wheezing. Gastrointestinal: Reports heartburn, but denies constipation, diarrhea, nausea, rectal itching, bloody stools and vomiting. Genitourinary: Denies incontinence. Musculoskeletal: Reports leg swelling, pain and trouble walking, but denies weakness. Skin: Reports tattoo, but denies Raynaud's and history of shingles. Neurological: Reports numbness/tingling but denies ambulatory dysfunction, dizziness and tremor. Psychiatric: Denies anxiety, insomnia and stress. Hematologic/Lymphatic: Denies anemia, bleeding/bruising tendency and past transfusion. Reviewed, no changes. PAST MEDICAL HISTORY: Advance Care Plan: No Advance Directives Effective Date: 08/18/2015 Past Medical History: Medical Problems: Arthritis, Ulcers, Iron Deficiency, Thrombocytopenia Accidents: None Surgical Hx: RT Shoulder RT Knee Arthroscopy - (09/13/2015) [facility] @ [facility] RT TKR - (03/28/2016) [facility] @ [facility] RT Knee Elysia - (05/16/2016) [email or web address] RT TKR Revision - (06/27/2016) [email or web address] Revision Right TKR - (06/14/2020) [facility] AT [facility]? Anesthesia Complications: None Assistive Devices: Dentures Reviewed, no changes. SOCIAL HISTORY: Social History: Marital: .Occupation: Retired.Work Status: Retired.Hand Dominance: Right-handed. Personal Habits:? Cigarette Use: Former Cigarette Smoker.Smokeless Tobacco: Never Used Smokeless Tobacco.E-Cigarette Use: Never used.Alcohol: Denies use.Drug Use: Denies Use.Enjoy Exercising: Never Exercises. Reviewed, no changes. VITALS: Ht: 62.5 Wt: 115lb Wt k.164 BMI: 20.7 BP: 120/78 Pulse: 75 Resp: 18 T: 97.5 T: 36.4C Pain Level: 6 O2SatR: 96 ALLERGIES: Aspirin? MEDICATIONS: Ferrous Sulfate 325 (65 Fe) MG take 1 tablet by mouth twice a day, Folic Acid 1 mg 1 by mouth every day, Trazodone HCL 50 mg 1 tab PO qhs, Gabapentin 300 mg 1 by mouth three times a day, Multi Vitamin? 1 by mouth every day PRE-OP EXAM:? General appearance:NORMAL? ? ? Other: Eyes: Conjunctivae and lids: NORMAL? Pupils: ERR Ears, Nose, Mouth, and Throat: NORMAL? Other: Inspection of lips, teeth and gums: NORMAL? ?Other: Neck: Examination of neck: no masses noted. Respiratory: Assessment of respiratory effort: NORMAL? ?Other: ?Auscultation of lungs: clear to auscultation no wheezes, rhonchi or rales. Cardiovascular:? Auscultation of heart: regular rate and rhythm, no murmurs, gallops or rubs. PHYSICAL EXAMINATION: Patient walks with an antalgic gait with increased pain.? Previous right knee is without erythema.? No signs of infection.? Previous incision is well healed.? Range of motion: 0 extension to 102 flexion.? Stable to varus/fungus stress test, 2 mm anterior drawer testing.? Sensation intact to light touch. IMAGING STUDIES: Patient's lab work was reviewed and his last platelet count was 77,000. Previous x-rays the implants appear stable with no evidence of loosening or lucencies IMPRESSION: 1.? 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 Chronic idiopathic thrombocytopenic purpura 3.? Macrocytic anemia 4.? History of Peptic ulcer Disease 5. Abdominal Aortic Aneurysm 6. History of Chronic Obstructive Disease PLAN: Dr. Leroy Moreau did discuss and review with the patient all treatment options including surgical versus nonsurgical options.? Patient does wish to proceed with the above-stated procedure.? Potential risks, benefits, and complications of the procedure were discussed in detail including but not limited to , infection, nerve and blood vessel damage, persistent pain, numbness, tingling, paresthesias, blood clot, pulmonary embolism, and requirement for possible further surgery.? The patient expressed full understanding and has no further questions for the doctor.? Patient does agree to proceed with the above-stated procedure and has signed the surgery consent form. POST-OP MEDICATION PLAN: Pain Medications: We are following the plan set forth by the evaporator repairer in which patient had his first Nplate on November 23, 2022 and we'll get his second dose on November 30, 2022.? Plan will be to maintain platelet count greater than 150,000 for surgery.? Repeat CBC will be performed prior to surgery on December 03, 2022 for final clearance. DVT Prophylaxis: From previous surgeries it was recommended patient use Eliquis 2.5 mg twice daily for DVT prophylaxis. He tolerated this well previously. He reports no history of DVT or pulmonary embolism. However there is documentation in the hospital record of pulmonary embolism. Patient is a very poor historian. I do not see documentation in patient's primary care note suggesting pulmonary embolism. However, we are going to be treating the patient post-operatively with Eliquis 2.5 mg twice daily for 2 weeks post-operatively followed by Aspirin 81 mg twice daily for additional 2 weeks. Case was discussed with Dr. Leroy Moreau. This dictation was created using voice recognition software. Phonetic and/or grammatical errors may exist. ___? I have re-examined the patient.? There are no clinical changes since date of exam. ___? See progress notes for changes. ___? Dictated on admission Date: ? ? ?Time: Signature:
--- NOTE | 2022-11-29 17:13 | CASEMGMT ---
Addendum entered and electronically signed by Elle Carlos RN 12/05/22 16:51: Roxy Benjamin (phone #[phone]) was listed on pt's demographics. Pt vaguely recalled Roxy and stated he has not spoken with Roxy in 3 years. Roxy removed from pt's contact list and pt's family members as noted below have been added. Juan M Carlos RN CM Addendum entered and electronically signed by Elle Carlos RN 11/29/22 17:16: Will evaluate if pt qualifies for use of the [facility] van transportation on discharge date. Herve Carlos RN CM Original Note: MARCELLO MORALES Discharge Planning Assessment: This RN CM notified that pt will be undergoing OR next Saturday, 12/05 and has requested transportation home at discharge from [facility] van transportation. This RN CM phoned pt to discuss this need and complete discharge planning assessment. Voicemail left and pt returned call. This RN CM introduced self and role at [facility], pt voices understanding and is agreeable to participate in assessment. Care providers, pharmacy, and demographics verified. Operative procedure: Revision of right knee with polyethylene exchange PCP: BRANNON Burroughs Specialists: Lizzeth (orthopedics), Eliezer (learning support assistant, although pt denies seeing this physician) Preferred Pharmacy: [facility] [place] Insurance: [facility] Prescription Benefit: yes Living Will/HPOA: Pt states he has a living will but does not know where it is located. Pt denies having an HPOA LNOK: Pt states he has a daughter Aixa Roberts who lives in [place] but has not spoken to her in over a year. Her phone number is [phone]. Pt states he has a granddaughter Alvina Roberts who lives in [place] whose phone # is [phone]. And he has a sister Lianet Roberts who lives in [place] whose phone number is [phone]. Pt states he has been in contact with his sister but not with his granddaughter or daughter. Living Arrangements: Pt states he lives alone in a single story apartment without any steps to enter. States he is independent with all ADLS including self care and household tasks. Transportation: Pt states he drives. States he will be obtaining enough groceries prior to his procedure to ensure he has enough food to eat for a month after his surgery. DME: walker, crutches, shower chair, hand held shower HHC/SNF: pt denies any previous providers Pt's goal: Pt plans to return home postoperatively and complete PT/OT at [facility] as an outpt. Discussed transportation to outpt tx and pt states he plans to drive himself approximately 5 days after his procedure. Will review pt's progress with PT/OT postoperatively and formulate final dc plan at that time. Juan M Carlos RN CM
== END | disposition home or self-care (01) ==
LOC: PAT 12-14 08:52
PROVIDERS: Anesthesiology; PCP Nurse Practitioner Family; Referring Provider Specialist; Visit Provider Specialist
DX: Z01.818 Encounter for other preprocedural examination (principal); T84.84XA Pain due to internal orthopedic prosthetic devices, implants and grafts, initial encounter; D69.3 Immune thrombocytopenic purpura; Z53.09 Procedure and treatment not carried out because of other contraindication
CPT/HCPCS: 36415; 80048; 82040; 83735; 85025; 87081; 93005; J3475

== ENCOUNTER → 2023-01-02 | Outpatient (CLI) | payer MEDICARE, SELFPAY ==
[2023-01-02 09:29] VITALS: BP 179/82; PULSE 88; RESP 16; TEMP 36.4; O2SAT 95; BMI 47.9
[2023-01-02 09:32] LABS: Hematocrit 37.1 % (40-54); Hemoglobin 11.2 g/dL (13.0-16.5); Mean Corp Hgb Conc 30.2 g/dL (32-36); Mean Corpuscular Hgb 29.9 pg (27.0-32.0); Mean Corpuscular Volume 98.9 fL (80-94); Mean Platelet Vol. 10.8 fl (6.2-12.0); POSITIVE MORPHOLOGY YES; Platelet Count 321 K/mm3 (150-450); RBC Distribution Width CV 14.8 % (11.6-14.6); RBC Distribution Width SD 53.7 fl (35.1-43.9); Red Blood Count 3.75 M/mm3 (4.6-6.2)
[2023-01-02 09:33] LABS: Scan Indicated on CBC? Y/N YES- FLAGS NOTED
[2023-01-02 09:46] LABS: Differential Comment SCANNED
--- NOTE | 2023-01-02 10:05 | PCM.PN.BLA ---
Assessment & Plan Assessment/Plan (1) Status post revision of total replacement of right knee: PLAN: Patient presented to the hospital today for revision right knee replacement polyethylene exchange. At his visit yesterday he was noted to have a rash over the incision area. He has chronic platelet disease and he did take blood thinners last evening. We were trying to work in a small window where patient's platelets have been restored however, with the use of blood thinners last evening and the rash noted in the office yesterday it was felt that the risks at this time outweigh the benefits of this elective surgery. We will continue to work with hematology oncology on maintaining his platelets and again attempt to reschedule the surgery in a timely manner as his platelets are currently appropriate for surgery.
== END | disposition home or self-care (01) ==
LOC: PAT 02-07 08:57
PROVIDERS: Anesthesiology; PCP Nurse Practitioner Family; Referring Provider Specialist; Visit Provider Specialist
DX: Z53.8 Procedure and treatment not carried out for other reasons (principal); R21 Rash and other nonspecific skin eruption
CPT/HCPCS: 85027; J7120; J3475

== ENCOUNTER → 2023-03-05 | Outpatient (REF) | payer MEDICARE, SELFPAY ==
[2023-03-05 08:16] LABS: Hematocrit 26.7 % (40-54); Hemoglobin 9.2 g/dL (13.0-16.5); Mean Corp Hgb Conc 34.5 g/dL (32-36); Mean Corpuscular Hgb 35.2 pg (27.0-32.0); Mean Corpuscular Volume 102.3 fL (80-94); Platelet Count 242 K/mm3 (150-450); RBC Distribution Width CV 16.5 % (11.6-14.6); RBC Distribution Width SD 59.7 fl (35.1-43.9); Red Blood Count 2.61 M/mm3 (4.6-6.2); White Blood Count 3.9 K/mm3 (4.4-11.0)
[2023-03-05 08:37] LABS: ALB/GLOB Ratio 0.7 RATIO (0.9-2.4); AST(SGOT) 18 U/L (15-37); Alanine Aminotransfer ALT/SGPT 33 U/L (16-61); Albumin, Serum 2.7 g/dL (3.2-5.0); Alkaline Phosphatase 120 U/L (45-117); Anion Gap 5 (5-15); BUN 8 mg/dL (7-18); BUN/Creat Ratio 9.6 RATIO (10-20); Calcium,Total 8.4 mg/dL (8.5-10.1); Chloride 111 mmol/L (98-107); Creatinine, Serum 0.83 mg/dL (0.70-1.30); EST Glomerular Filtration Rate 96 mL/min (>60); Est Glom Filt Rate - Afr Amer 116 mL/min (>60); Globulin 3.9 g/dL (2.2-4.2); Glucose 92 mg/dL (74-106); Protein, Total 6.6 g/dL (6.4-8.2); Sodium Level 142 mmol/L (136-145)
== END ==
LOC: OLS.SW 05:00
PROVIDERS: PCP Nurse Practitioner Family; Visit Provider Family Medicine
DX: I10 Essential (primary) hypertension (principal); D62 Acute posthemorrhagic anemia
CPT/HCPCS: 36415; 80053; 85027

== ENCOUNTER → 2023-03-12 | Outpatient (REF) | payer MEDICARE, MEDICAID, SELFPAY ==
[2023-03-12 09:23] LABS: Hematocrit 26.3 % (40-54); Hemoglobin 9.2 g/dL (13.0-16.5); Mean Corpuscular Hgb 35.9 pg (27.0-32.0); Mean Corpuscular Volume 102.7 fL (80-94); Mean Platelet Vol. 13.1 fl (6.2-12.0); Platelet Count 154 K/mm3 (150-450); RBC Distribution Width CV 18.5 % (11.6-14.6); RBC Distribution Width SD 60.7 fl (35.1-43.9); Red Blood Count 2.56 M/mm3 (4.6-6.2); White Blood Count 5.3 K/mm3 (4.4-11.0)
[2023-03-12 09:32] LABS: ALB/GLOB Ratio 0.7 RATIO (0.9-2.4); AST(SGOT) 20 U/L (15-37); Alanine Aminotransfer ALT/SGPT 28 U/L (16-61); Albumin, Serum 2.9 g/dL (3.2-5.0); Alkaline Phosphatase 113 U/L (45-117); Anion Gap 5 (5-15); BUN 8 mg/dL (7-18); BUN/Creat Ratio 9.4 RATIO (10-20); Calcium,Total 8.8 mg/dL (8.5-10.1); Chloride 108 mmol/L (98-107); Creatinine, Serum 0.85 mg/dL (0.70-1.30); EST Glomerular Filtration Rate 93 mL/min (>60); Est Glom Filt Rate - Afr Amer 112 mL/min (>60); Glucose 94 mg/dL (74-106); Potassium 4.5 mmol/L (3.5-5.1); Protein, Total 6.9 g/dL (6.4-8.2); Sodium Level 140 mmol/L (136-145)
== END ==
LOC: OLS.SW 05:00
PROVIDERS: PCP Nurse Practitioner Family; Visit Provider Family Medicine
DX: Z79.899 Other long term (current) drug therapy (principal)
CPT/HCPCS: 36415; 80053; 85027